=== PATIENT | female | born 1960 | race Caucasian/White ===

== ENCOUNTER 2016-09-13 16:37 | Emergency (ER) | payer OTHER, MEDICAID ==
[~2016-09-13] VITALS: Ht 162.5 cm; Wt 81.6 kg
[2016-09-13] MEDS ORDERED: NAPROSYN500 MG PO (18:30)
== END 2016-09-13 18:35 | disposition home or self-care (01) ==
LOC: ED 16:37
DX: M17.11 Unilateral primary osteoarthritis, right knee (principal); Z88.6 Allergy status to analgesic agent

== ENCOUNTER → 2018-01-03 | Outpatient (CLI) | payer OTHER, MEDICAID ==
[~2018-01-03] MED LIST: AMITRIPTYLINE100 M1 PO; DOK100 M1 PO; FUROSEMIDE40 MG PO; GABAPENTIN600 MG PO; GLIPIZIDE10 M2 PO; GLUCOPHAGE500 M1 PO; GOOD SENSE ACID20 MG PO; LEVOFLOXACIN500 MG PO; LEVOTHYROXINE50 MCG PO; MELOXICAM15 MG PO; METOLAZONE2.5 MG PO; NAPROSYN500 MG PO; TRESIBA FL200 UNIT/1 SQ; ZIAC 5-6.25 MG1 EACH PO; ZOLOFT50 MG PO
== END | disposition home or self-care (01) ==
LOC: MAMMO 13:31
DX: Z12.31 Encounter for screening mammogram for malignant neoplasm of breast (principal)

== ENCOUNTER 2018-01-12 14:04 | Inpatient (IN) | payer OTHER, MEDICAID ==
[~2018-01-12] VITALS: Ht 162.6 cm; Wt 94.5 kg
--- NOTE | ~2018-01-12 | EKG ---
[place], [place] ELECTROCARDIOGRAM REPORT NAME: ANGEL CHATMAN UNIT #: [id number] ROOM: 517 DOCTOR: LEAH DRAFT REPORT BIRTHDATE: [birth year] [facility] Test Date: 2018-01-12 Test Time: 14:33:45 Pat Name: ANGEL CHATMAN Department: Room: [facility] Gender: F Historical Interpreter: Carol Jacob : 1960 Requested By: TERRELL VIGIL PA-C Order Number: [id number] Reading MD: Ignacio Girard MD Measurements Intervals [place] Rate: 89 P: 33 HI: 156 QRS: -58 QRSD: 105 T: 10 QT: 377 QTc: 459 Interpretive Statements Sinus rhythm Left anterior fascicular block Abnormal R-wave progression, late transition Electronically Signed On 01-13-2018 8:05:31 PDT by Ignacio Girard MD CM:EKGRPT:ELECTROCARDIOGRAM REPORT [id number] TERRELL VIGIL PA-C EPIPHANY DRAFT REPORT TERRELL VIGIL PA-C
[2018-01-12 14:04] VITALS: BP 89/56
[~2018-01-12 14:04] MED LIST changes: -AMITRIPTYLINE100 M1 PO; -DOK100 M1 PO; -FUROSEMIDE40 MG PO; -GABAPENTIN600 MG PO; -GLIPIZIDE10 M2 PO; -GLUCOPHAGE500 M1 PO; -GOOD SENSE ACID20 MG PO; -LEVOFLOXACIN500 MG PO; -LEVOTHYROXINE50 MCG PO; -MELOXICAM15 MG PO; -METOLAZONE2.5 MG PO; -TRESIBA FL200 UNIT/1 SQ; -ZIAC 5-6.25 MG1 EACH PO; -ZOLOFT50 MG PO
[2018-01-12 14:11] VITALS: BP 100/56
[2018-01-12 15:02] LABS: BASO # 0.1 10*3/uL (0.0-0.1); BASO % 0.6 % (0.0-1.0); EOS % 0.3 % (1.0-4.0); HEMATOCRIT 48.3 % (37.0-47.0); LYMPH # 2.6 10*3/uL (1.3-4.4); LYMPH % 16.7 % (27.0-41.0); MEAN CORPUSCULAR HGB CONC 35.2 g/dl (33.0-37.0); MEAN PLATELET VOLUME 10.6 fl (9.6-12.3); MONO # 0.7 10*3/uL (0.1-1.0); MONO % 4.4 % (3.0-9.0); NEUT # 11.9 10*3/uL (2.3-7.9); NEUT % 77.5 % (47.0-73.0); PLATELET COUNT AUTOMATED 334 10*3/uL (130-400); RED BLOOD COUNT 5.31 10*6/uL (4.10-5.10); RED CELL DISTRI WIDTH 12.4 % (0-14.5); WHITE BLOOD COUNT 15.3 10*3/uL (4.8-10.8)
[2018-01-12 15:21] LABS: ALBUMIN 4.4 gm/dl (3.1-4.5); ALKALINE PHOSPHATASE 64 U/L (45-117); BUN 25 mg/dl (7-24); CHLORIDE 90 mmol/L (98-107); CREATININE 1.44 mg/dL (0.55-1.02); POTASSIUM 3.1 mmol/L (3.5-5.1); SGOT/AST 66 IU/L (3-35); SGPT/ALT 95 U/L (12-78); SODIUM 131 mmol/L (136-145); TOTAL PROTEIN 8.8 gm/dL (6.4-8.2)
[2018-01-12 15:22] LABS: TROPONIN I < 0.015 ng/ml (<0.045)
[2018-01-12 15:39] LABS: ACT PARTIAL THROMBO TIME 22.6 SECONDS (20.8-31.5)
[2018-01-12 16:09] LABS: BILIRUBIN NEGATIVE (NEGATIVE); BLOOD NEGATIVE (NEGATIVE); CLARITY CLEAR (CLEAR); COLOR YELLOW (YELLOW); GLUCOSE NEGATIVE (NEGATIVE); KETONE NEGATIVE (NEGATIVE); LEUKO ESTERASE NEGATIVE (NEGATIVE); NITRITE NEGATIVE (NEGATIVE); SPECIFIC GRAVITY 1.015 (1.005-1.030); UROBILINOGEN 0.2 E.U./dl (0.2-1.0)
[2018-01-12 16:14] VITALS: BP 102/76
[2018-01-12 16:17] LABS: BACTERIA TRACE; HYALINE CAST 20-25; WBC 0-2 wbc/hpf (0-5)
[2018-01-12] MEDS ORDERED: ZIAC 5-6.25 MG1 EACH PO (16:48)
[2018-01-12] MEDS ORDERED: LEVOTHYROXINE50 MCG PO (16:49)
[2018-01-12] MEDS ORDERED: AMITRIPTYLINE100 M1 PO (16:50)
[2018-01-12] MEDS ORDERED: GABAPENTIN600 MG PO (16:50)
[2018-01-12] MEDS ORDERED: GLUCOPHAGE500 M1 PO (16:53)
[2018-01-12] MEDS ORDERED: METOLAZONE2.5 MG PO (16:54)
[2018-01-12] MEDS ORDERED: FUROSEMIDE40 MG PO (16:54)
[2018-01-12] MEDS ORDERED: MELOXICAM15 MG PO (16:55)
[2018-01-12] MEDS ORDERED: GOOD SENSE ACID20 MG PO (16:56)
[2018-01-12] MEDS ORDERED: DOK100 M1 PO (16:57)
[2018-01-12] MEDS ORDERED: ZOLOFT50 MG PO (16:58)
[2018-01-12] MEDS ORDERED: GLIPIZIDE10 M2 PO (16:58)
[2018-01-12 17:10] VITALS: BP 101/51
[2018-01-12] MEDS ORDERED: NAPROSYN500 MG PO (17:39)
[2018-01-12] MEDS ORDERED: TRESIBA FL200 UNIT/1 SQ (17:41)
[2018-01-12 20:00] VITALS: BP 110/60
[2018-01-13] VITALS: BP 120/61
[2018-01-13 07:07] LABS: ACT PARTIAL THROMBO TIME 22.5 SECONDS (20.8-31.5)
[2018-01-13 07:19] LABS: ALBUMIN 3.3 gm/dl (3.1-4.5); ALKALINE PHOSPHATASE 59 U/L (45-117); BUN 25 mg/dl (7-24); CHLORIDE 95 mmol/L (98-107); CHOLESTEROL 188 mg/dL (<200); CREATININE 1.04 mg/dL (0.55-1.02); HDL CHOLESTEROL 32 mg/dl (40-60); LDL CHOLESTEROL 112 mg/dL (9-159); PHOSPHOROUS 3.9 mg/dL (2.5-4.9); POTASSIUM 2.5 mmol/L (3.5-5.1); SGOT/AST 36 IU/L (3-35); SGPT/ALT 68 U/L (12-78); SODIUM 136 mmol/L (136-145); TOTAL PROTEIN 6.9 gm/dL (6.4-8.2); TRIGLYCERIDES 218 mg/dl (<150); VLDL CHOLESTEROL 44 mg/dL (6-40)
[2018-01-13 07:36] LABS: VITAMIN D, 25-HYDROXY 23.1 ng/mL (30-100)
[2018-01-13 08:00] VITALS: BP 110/58; BP 111/64
[2018-01-13 12:00] VITALS: BP 119/67
[2018-01-13 16:00] VITALS: BP 117/69
[2018-01-13 20:00] VITALS: BP 120/73
[2018-01-14] VITALS: BP 107/51
[2018-01-14 07:09] LABS: ALBUMIN 3.2 gm/dl (3.1-4.5); ALKALINE PHOSPHATASE 46 U/L (45-117); CHLORIDE 102 mmol/L (98-107); CREATININE 0.65 mg/dL (0.55-1.02); POTASSIUM 2.8 mmol/L (3.5-5.1); SGOT/AST 24 IU/L (3-35); SGPT/ALT 55 U/L (12-78); SODIUM 140 mmol/L (136-145); TOTAL PROTEIN 6.6 gm/dL (6.4-8.2)
[2018-01-14 07:12] LABS: BUN 14 mg/dl (7-24)
[2018-01-14 07:27] LABS: BASO # 0.1 10*3/uL (0.0-0.1); BASO % 0.7 % (0.0-1.0); EOS # 0.3 10*3/uL (0.0-0.4); EOS % 3.5 % (1.0-4.0); LYMPH # 3.2 10*3/uL (1.3-4.4); LYMPH % 43.6 % (27.0-41.0); MEAN CORPUSCULAR HGB 31.3 pg (27.0-31.0); MEAN CORPUSCULAR HGB CONC 33.2 g/dl (33.0-37.0); MEAN PLATELET VOLUME 10.9 fl (9.6-12.3); MONO # 0.6 10*3/uL (0.1-1.0); MONO % 7.6 % (3.0-9.0); NEUT # 3.2 10*3/uL (2.3-7.9); NEUT % 44.1 % (47.0-73.0); RED BLOOD COUNT 4.12 10*6/uL (4.10-5.10); RED CELL DISTRI WIDTH 12.4 % (0-14.5); WHITE BLOOD COUNT 7.3 10*3/uL (4.8-10.8)
[2018-01-14 07:31] LABS: HEMATOCRIT 38.9 % (37.0-47.0); HEMOGLOBIN 12.9 g/dl (12.0-16.0); MEAN CELL VOLUME 94.4 fl (81.0-99.0); PLATELET COUNT AUTOMATED 227 10*3/uL (130-400)
[2018-01-14 08:00] VITALS: BP 118/62; BP 122/72
[2018-01-14] MEDS ORDERED: LEVOFLOXACIN500 MG PO (11:33)
[2018-01-14 12:00] VITALS: BP 127/61
== END 2018-01-14 14:55 | disposition home or self-care (01) | DRG 871 ==
LOC: ED 14:04 → 5E 15:58 → EDHOLD 15:58 → 5E 16:26
PROVIDERS: Family Medicine; Physician Assistant; Student in an Organized Health Care Education/Training Program
DX: A41.9 Sepsis, unspecified organism (principal); J18.9 Pneumonia, unspecified organism; N17.0 Acute kidney failure with tubular necrosis; E87.2 Acidosis; E87.1 Hypo-osmolality and hyponatremia; J01.00 Acute maxillary sinusitis, unspecified; J44.9 Chronic obstructive pulmonary disease, unspecified; E03.9 Hypothyroidism, unspecified; E78.00 Pure hypercholesterolemia, unspecified; F32.9 Major depressive disorder, single episode, unspecified; K21.9 Gastro-esophageal reflux disease without esophagitis; I11.0 Hypertensive heart disease with heart failure; I50.9 Heart failure, unspecified; Z88.9 Allergy status to unspecified drugs, medicaments and biological substances; M19.90 Unspecified osteoarthritis, unspecified site; E04.9 Nontoxic goiter, unspecified; Z82.49 Family history of ischemic heart disease and other diseases of the circulatory system; Z81.2 Family history of tobacco abuse and dependence; Z88.5 Allergy status to narcotic agent; R65.20 Severe sepsis without septic shock; E11.65 Type 2 diabetes mellitus with hyperglycemia; R74.0 Nonspecific elevation of levels of transaminase and lactic acid dehydrogenase [LDH]; E87.8 Other disorders of electrolyte and fluid balance, not elsewhere classified; Z79.4 Long term (current) use of insulin; E11.42 Type 2 diabetes mellitus with diabetic polyneuropathy; Z87.891 Personal history of nicotine dependence

== ENCOUNTER 2018-09-04 14:27 | Inpatient (IN) | payer OTHER, MEDICAID ==
[~2018-09-04] VITALS: Ht 162.5 cm; Wt 93.2 kg
--- NOTE | ~2018-09-04 | EKG ---
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: : 1960 Requested By: TERRELL VIGIL PA-C Order Number: [id number] Reading MD: Cecily Ordonez Measurements Intervals [place] Rate: 72 P: 32 ND: 165 QRS: -27 QRSD: 99 T: -3 QT: 412 QTc: 451 Interpretive Statements Sinus rhythm Borderline left axis deviation Abnormal R-wave progression, late transition Borderline T abnormalities, inferior leads Baseline wander in lead(s) V3 Compared to ECG 01/12/2018 14:33:45 T-wave abnormality now present Left anterior fascicular block no longer present Electronically Signed On 09-05-2018 8:45:09 PDT by Cecily Ordonez CM:EKGRPT:ELECTROCARDIOGRAM REPORT [id number] TERRELL VIGIL PA-C EPIPHANY DRAFT REPORT TERRELL VIGIL PA-C
--- NOTE | ~2018-09-04 | EKG ---
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: : 1960 Requested By: TERRELL VIGIL PA-C Order Number: [id number] Reading MD: Cecily Ordonez Measurements Intervals [place] Rate: 78 P: 148 NE: 167 QRS: 213 QRSD: 106 T: 182 QT: 416 QTc: 474 Interpretive Statements Consider arm lead reversal Sinus or ectopic atrial rhythm Consider anterior infarct Consider lateral ischemia Compared to ECG 01/12/2018 14:33:45 Ectopic atrial rhythm now present Posterior QRS axis now present Myocardial infarct finding now present T-wave abnormality now present Possible ischemia now present Electronically Signed On 09-05-2018 8:42:56 PDT by Cecily Ordonez CM:EKGRPT:ELECTROCARDIOGRAM REPORT [id number] TERRELL VIGIL PA-C EPIPHANY DRAFT REPORT TERRELL VIGIL PA-C
--- NOTE | ~2018-09-04 | EKG ---
[place], [place] ELECTROCARDIOGRAM REPORT NAME: ANGEL CHATMAN UNIT #: [id number] ROOM: 525 DOCTOR: LEAH DRAFT REPORT BIRTHDATE: [birth year] [facility] Test Date: 2018-09-04 Test Time: 16:05:23 Pat Name: ANGEL CHATMAN Department: Room: [facility] Gender: F Plan Coordinator: : 1960 Requested By: TERRELL VIGIL PA-C Order Number: [id number] Reading MD: Cecily Ordonez Measurements Intervals [place] Rate: 80 P: 36 [place]: 160 QRS: -33 QRSD: 101 T: 2 QT: 387 QTc: 447 Interpretive Statements Sinus rhythm Left axis deviation Abnormal R-wave progression, late transition Compared to ECG 01/12/2018 14:33:45 Left-axis deviation now present Left anterior fascicular block no longer present Electronically Signed On 09-05-2018 8:39:30 PDT by Cecily Ordonez CM:EKGRPT:ELECTROCARDIOGRAM REPORT [id number] TERRELL VIGIL PA-C EPIPHANY DRAFT REPORT TERRELL VIGIL PA-C
[~2018-09-04 14:27] MED LIST changes: +AMITRIPTYLINE100 M1 PO; +DOK100 M1 PO; +FUROSEMIDE40 MG PO; +GABAPENTIN600 MG PO; +GLIPIZIDE10 M2 PO; +GLUCOPHAGE500 M1 PO; +GOOD SENSE ACID20 MG PO; +LEVOFLOXACIN500 MG PO; +LEVOTHYROXINE50 MCG PO; +MELOXICAM15 MG PO; +METOLAZONE2.5 MG PO; +TRESIBA FL200 UNIT/1 SQ; +ZIAC 5-6.25 MG1 EACH PO; +ZOLOFT50 MG PO
[2018-09-04 14:29] VITALS: BP 121/61
[2018-09-04 16:30] VITALS: BP 118/58
[2018-09-04 16:35] LABS: BASO # 0.1 10*3/uL (0.0-0.1); BASO % 0.4 % (0.0-1.0); EOS # 0.1 10*3/uL (0.0-0.4); EOS % 0.9 % (1.0-4.0); HEMATOCRIT 44.9 % (37.0-47.0); HEMOGLOBIN 15.2 g/dl (12.0-16.0); LYMPH # 3.7 10*3/uL (1.3-4.4); LYMPH % 28.6 % (27.0-41.0); MEAN CELL VOLUME 92.2 fl (81.0-99.0); MEAN CORPUSCULAR HGB 31.2 pg (27.0-31.0); MEAN CORPUSCULAR HGB CONC 33.9 g/dl (33.0-37.0); MEAN PLATELET VOLUME 10.8 fl (9.6-12.3); MONO # 0.9 10*3/uL (0.1-1.0); NEUT # 8.1 10*3/uL (2.3-7.9); NEUT % 62.7 % (47.0-73.0); PLATELET COUNT AUTOMATED 267 10*3/uL (130-400); RED BLOOD COUNT 4.87 10*6/uL (4.10-5.10); RED CELL DISTRI WIDTH 12.5 % (0-14.5); WHITE BLOOD COUNT 12.9 10*3/uL (4.8-10.8)
[2018-09-04 16:50] LABS: ACT PARTIAL THROMBO TIME 25.3 SECONDS (20.0-32.1); INTERNATIONAL NORM RATIO 0.9 (2.0-3.5)
[2018-09-04 16:51] LABS: ALBUMIN 3.9 gm/dl (3.1-4.5); ALKALINE PHOSPHATASE 71 U/L (45-117); BUN 11 mg/dl (7-24); CHLORIDE 97 mmol/L (98-107); CREATININE 0.72 mg/dL (0.55-1.02); POTASSIUM 2.7 mmol/L (3.5-5.1); SGOT/AST 16 IU/L (3-35); SGPT/ALT 30 U/L (12-78); SODIUM 135 mmol/L (136-145); TOTAL PROTEIN 7.7 gm/dL (6.4-8.2)
[2018-09-04 16:52] LABS: TROPONIN I < 0.015 ng/ml (<0.045)
[2018-09-04 19:25] VITALS: BP 112/82
[2018-09-04 20:00] VITALS: BP 144/99
[2018-09-04 20:33] VITALS: BP 104/76
[2018-09-04 21:13] VITALS: BP 94/49
--- NOTE | 2018-09-04 21:13 | NUR ---
A 58, admitted to 5E, under the services of SOO Mendez DO with a diagnosis of ABNORMAL EKG, CHEST PAIN. Chief complaint is TREMORS. Patient arrived via ambulatory from ER. Monitor applied. Initial assessment completed. Vital signs taken and recorded. SOO MENDEZ DO notified of admission to the unit. Orders received. See assessment for past medical history, medications and allergies. Patient and/or family oriented to unit. visitation policy reviewed. Clothing/patient valuable form completed. VIVI GAITAN
[2018-09-04] MEDS ORDERED: COLACE100 MG PO (23:37)
[2018-09-04] MEDS ORDERED: METHOTREXATE2.5 M1 PO (23:38)
[2018-09-04] MEDS ORDERED: K-TAB10 MEQ PO (23:39)
--- NOTE | 2018-09-04 23:40 | NUR ---
DR. TORRES NOTIFIED THAT PATIENT'S MED REQ IS UP TO DATE.
[2018-09-05] VITALS: BP 106/59
[2018-09-05 06:33] LABS: BASO # 0.1 10*3/uL (0.0-0.1); BASO % 0.6 % (0.0-1.0); EOS # 0.2 10*3/uL (0.0-0.4); EOS % 2.7 % (1.0-4.0); HEMATOCRIT 40.9 % (37.0-47.0); HEMOGLOBIN 13.7 g/dl (12.0-16.0); LYMPH # 3.3 10*3/uL (1.3-4.4); MEAN CELL VOLUME 93.2 fl (81.0-99.0); MEAN CORPUSCULAR HGB 31.2 pg (27.0-31.0); MEAN CORPUSCULAR HGB CONC 33.5 g/dl (33.0-37.0); MEAN PLATELET VOLUME 10.8 fl (9.6-12.3); MONO # 0.7 10*3/uL (0.1-1.0); NEUT # 4.4 10*3/uL (2.3-7.9); NEUT % 50.5 % (47.0-73.0); PLATELET COUNT AUTOMATED 224 10*3/uL (130-400); RED BLOOD COUNT 4.39 10*6/uL (4.10-5.10); RED CELL DISTRI WIDTH 12.4 % (0-14.5); WHITE BLOOD COUNT 8.7 10*3/uL (4.8-10.8)
[2018-09-05 07:04] LABS: BUN 12 mg/dl (7-24); CHLORIDE 99 mmol/L (98-107); CHOLESTEROL 196 mg/dL (<200); POTASSIUM 2.6 mmol/L (3.5-5.1); SODIUM 137 mmol/L (136-145); TRIGLYCERIDES 233 mg/dl (<150); VLDL CHOLESTEROL 47 mg/dL (6-40)
[2018-09-05 07:12] LABS: HDL CHOLESTEROL 34 mg/dl (40-60); LDL CHOLESTEROL 115 mg/dL (9-159)
--- NOTE | 2018-09-05 09:00 | NUR ---
Collaborating Supervising Physician in to talk to patient. Patient states lives at home with alone. There are few steps in the home. Physician: deepak patton [facility]: none Patient's level of ADLs: INDEPENDENT Patient has working utilities: all working DME: walker, glucometer Follow-up physician's appointment after d/c: will be made by hospitalist nurse director upon discharge Does patient want to access PORTAL?: no Discharge plan discussed with patient, patient lives at home alone, she uses a walker for ambulation, patient states she will be going home when able. discussed with her [facility]NA and explained their services and patient declined, stated she didn't have any home needs at this time. IHSAN GUILLERMO
[2018-09-05 09:22] LABS: VITAMIN D, 25-HYDROXY 13.8 ng/mL (30-100)
[2018-09-05 12:00] VITALS: BP 80/52; BP 83/52
--- NOTE | 2018-09-05 12:10 | NUR ---
Updated patients med rec and contacted pharmacy. See new orders.
[2018-09-05 12:30] VITALS: BP 80/52
--- NOTE | 2018-09-05 12:58 | NUR ---
Spoke with Dr. Cornejo regarding patients low blood pressure. Patient to receive fluid bolus and recheck pressure in 1 hour. See new orders.
--- NOTE | 2018-09-05 16:03 | NUR ---
Bolus of fluids effective. See vitals. Patient states "I had a headache, but it is gone."
--- NOTE | 2018-09-05 16:19 | NUR ---
Discharge instructions reviewed with patient/family. Patient receptive and verbalizes understanding. Follow-up care arranged. Written instructions given to patient/family. Follow up appointments and medications were reviewed with patient. Patient ambulated from unit with a friend and all personal belongings accounted for. ROSENDO LERNER
== END 2018-09-05 16:19 | disposition home or self-care (01) | DRG 206 ==
LOC: ED 14:27 → EDHOLD 19:58 → 5E 19:58
PROVIDERS: Internal Medicine; Physician Assistant; ADMIT Internal Medicine
DX: M94.0 Chondrocostal junction syndrome [Tietze] (principal); E87.1 Hypo-osmolality and hyponatremia; K21.9 Gastro-esophageal reflux disease without esophagitis; F41.9 Anxiety disorder, unspecified; R94.31 Abnormal electrocardiogram [ECG] [EKG]; E87.6 Hypokalemia; R00.0 Tachycardia, unspecified; E87.8 Other disorders of electrolyte and fluid balance, not elsewhere classified; D72.829 Elevated white blood cell count, unspecified; E03.9 Hypothyroidism, unspecified; J44.9 Chronic obstructive pulmonary disease, unspecified; E11.65 Type 2 diabetes mellitus with hyperglycemia; I50.9 Heart failure, unspecified; R07.89 Other chest pain; M19.90 Unspecified osteoarthritis, unspecified site; I11.0 Hypertensive heart disease with heart failure; M06.9 Rheumatoid arthritis, unspecified; E78.00 Pure hypercholesterolemia, unspecified; Z88.6 Allergy status to analgesic agent; Z88.8 Allergy status to other drugs, medicaments and biological substances; Z79.4 Long term (current) use of insulin; Z79.899 Other long term (current) drug therapy; Z87.891 Personal history of nicotine dependence; Z82.49 Family history of ischemic heart disease and other diseases of the circulatory system; Z81.2 Family history of tobacco abuse and dependence

== ENCOUNTER 2019-01-19 18:08 | Inpatient (IN) | payer OTHER, MEDICAID ==
[~2019-01-19] VITALS: Ht 162.5 cm; Wt 88.6 kg
[~2019-01-19 18:08] MED LIST changes: +COLACE100 MG PO; +K-TAB10 MEQ PO; +METHOTREXATE2.5 M1 PO
[2019-01-19 18:10] VITALS: BP 116/59
[2019-01-19 20:32] VITALS: BP 110/60
[2019-01-19 21:21] LABS: BASO # 0.1 10*3/uL (0.0-0.1); BASO % 0.6 % (0.0-1.0); EOS # 0.1 10*3/uL (0.0-0.4); EOS % 0.6 % (1.0-4.0); HEMATOCRIT 43.3 % (37.0-47.0); HEMOGLOBIN 15.3 g/dl (12.0-16.0); LYMPH # 3.5 10*3/uL (1.3-4.4); LYMPH % 27.3 % (27.0-41.0); MEAN CELL VOLUME 90.8 fl (81.0-99.0); MEAN CORPUSCULAR HGB 32.1 pg (27.0-31.0); MEAN CORPUSCULAR HGB CONC 35.3 g/dl (33.0-37.0); MEAN PLATELET VOLUME 11.3 fl (9.6-12.3); MONO # 0.8 10*3/uL (0.1-1.0); MONO % 6.2 % (3.0-9.0); NEUT # 8.4 10*3/uL (2.3-7.9); NEUT % 64.8 % (47.0-73.0); PLATELET COUNT AUTOMATED 305 10*3/uL (130-400); RED BLOOD COUNT 4.77 10*6/uL (4.10-5.10); RED CELL DISTRI WIDTH 12.5 % (0-14.5)
[2019-01-19 21:36] LABS: ALBUMIN 3.9 gm/dl (3.1-4.5); ALKALINE PHOSPHATASE 76 U/L (45-117); BUN 17 mg/dl (7-24); CHLORIDE 89 mmol/L (98-107); CREATININE 1.11 mg/dL (0.55-1.02); POTASSIUM 2.6 mmol/L (3.5-5.1); SGOT/AST 24 IU/L (3-35); SGPT/ALT 34 U/L (12-78); SODIUM 131 mmol/L (136-145); TOTAL PROTEIN 7.9 gm/dL (6.4-8.2)
[2019-01-20 01:26] LABS: BUN 15 mg/dl (7-24); CHLORIDE 95 mmol/L (98-107); SODIUM 134 mmol/L (136-145)
[2019-01-20 01:29] LABS: POTASSIUM 2.3 mmol/L (3.5-5.1)
[2019-01-20 02:08] VITALS: BP 117/74
--- NOTE | 2019-01-20 02:45 | NUR ---
PATIENT GIVEN KDUR 80MEG PO PER VO DR ALICEA.
[2019-01-20 06:12] LABS: BASO # 0.1 10*3/uL (0.0-0.1); BASO % 0.5 % (0.0-1.0); EOS # 0.1 10*3/uL (0.0-0.4); EOS % 0.8 % (1.0-4.0); HEMATOCRIT 38.2 % (37.0-47.0); HEMOGLOBIN 13.1 g/dl (12.0-16.0); LYMPH # 2.6 10*3/uL (1.3-4.4); LYMPH % 24.7 % (27.0-41.0); MEAN CELL VOLUME 92.7 fl (81.0-99.0); MEAN CORPUSCULAR HGB 31.8 pg (27.0-31.0); MEAN CORPUSCULAR HGB CONC 34.3 g/dl (33.0-37.0); MEAN PLATELET VOLUME 11.8 fl (9.6-12.3); MONO # 0.6 10*3/uL (0.1-1.0); MONO % 5.3 % (3.0-9.0); NEUT # 7.2 10*3/uL (2.3-7.9); NEUT % 68.4 % (47.0-73.0); PLATELET COUNT AUTOMATED 263 10*3/uL (130-400); RED BLOOD COUNT 4.12 10*6/uL (4.10-5.10); RED CELL DISTRI WIDTH 12.5 % (0-14.5); WHITE BLOOD COUNT 10.5 10*3/uL (4.8-10.8)
[2019-01-20 06:17] LABS: ALBUMIN 3.2 gm/dl (3.1-4.5); BUN 13 mg/dl (7-24); CHLORIDE 96 mmol/L (98-107); POTASSIUM 2.6 mmol/L (3.5-5.1); SODIUM 134 mmol/L (136-145)
[2019-01-20 06:22] LABS: ALKALINE PHOSPHATASE 62 U/L (45-117); CHOLESTEROL 180 mg/dL (<200); CREATININE 0.61 mg/dL (0.55-1.02); HDL CHOLESTEROL 32 mg/dl (40-60); LDL CHOLESTEROL 119 mg/dL (9-159); SGOT/AST 13 IU/L (3-35); SGPT/ALT 27 U/L (12-78); TOTAL PROTEIN 6.3 gm/dL (6.4-8.2); TRIGLYCERIDES 146 mg/dl (<150); VLDL CHOLESTEROL 29 mg/dL (6-40)
--- NOTE | 2019-01-20 07:02 | NUR ---
REPORT RECIEVED FROM FAHAD PAIZ
--- NOTE | 2019-01-20 07:43 | NUR ---
RESIDENT IN WITH PATIENT
--- NOTE | 2019-01-20 08:20 | NUR ---
BEDSIDE BGL 305 LASK K+ 0105 HRS 2.3 AWAITING UPDATED K+ LEVEL
--- NOTE | 2019-01-20 09:19 | NUR ---
UNABLE TO PULL LISPRO FROM [facility]
--- NOTE | 2019-01-20 09:23 | NUR ---
A 59[facility] under the services of LENA Grover DO with a diagnosis of HYPERGLYCEMIA, DM W/ HYPEROSMOLITY, W/O COMA. Chief complaint is RIGHT KNEE PAIN. Patient arrived via stretcher from ER. Monitor applied. Initial assessment completed. Vital signs taken and recorded. LENA GROVER DO notified of admission to the unit. Orders received. See assessment for past medical history, medications and allergies. Patient and/or family oriented to unit. [facility] visitation policy reviewed. Clothing/patient valuable form completed. WILIAN SPENCER
--- NOTE | 2019-01-20 09:27 | NUR ---
OUT OF LISPRO PHARMACY WILL BRING SOME DOWN
--- NOTE | 2019-01-20 09:37 | NUR ---
MED REC UP TO DATE PER PATIENT
[2019-01-20 09:48] VITALS: BP 103/54
--- NOTE | 2019-01-20 12:30 | NUR ---
PT STATES SHE IS MISSING A SHIRT AND BRA FROM LAST NIGHT STATES SHE HAD THEM ON SHELF I LOOKED OVER ROOM AND IN DIRTY CLOTHES SIVAKUMAR NO CLOTHES FOUND
--- NOTE | 2019-01-20 12:31 | NUR ---
missing clothes found
[2019-01-20 12:55] VITALS: BP 110/50
[2019-01-20] MEDS ORDERED: OZEMPIC0.25 MG/01 SC (13:09)
--- NOTE | 2019-01-20 13:48 | NUR ---
PT GAVE HERSELF HER INSULIN TO COVER GLUCOSE CHECK
[2019-01-20 14:56] LABS: BUN 11 mg/dl (7-24); CHLORIDE 99 mmol/L (98-107); CREATININE 0.72 mg/dL (0.55-1.02); POTASSIUM 3.1 mmol/L (3.5-5.1); SODIUM 135 mmol/L (136-145)
--- NOTE | 2019-01-20 15:23 | NUR ---
[place] in to talk to patient. Patient states lives at HOME with BOYFRIEND. There are OUTSIDE steps in the home. Physician: Russell CABRERA [facility] services: NONE Patient's level of ADLs: INDEPENDENT Patient has working utilities: YES DME: HAS A WALKER BUT DOES NOT USE IT Follow-up physician's appointment after d/c: WILL BE MADE BY HOSPITALIST NURSE DIRECTOR ON DISCHARGE Does patient want to access PORTAL?: NO Discharge plan PT LIVES AT HOME WITH HER BOYFRIEND AND IS INDEPENDENT IN HER CARE. STATES SHE WILL RETURN HOME WITH BOYFRIEND WHEN MEDICALLY STABLE. STATES SHE WILL HAVE A RIDE HOME. WILL CONTINUE TO FOLLOW.. TRUDY CALLOWAY
--- NOTE | 2019-01-20 15:29 | NUR ---
Nursing screen received and chart review completed.Patient admitted with weakness and blood glucose 533 as patient had not taken insulin/diabetic medications in ce 12/18/18. At this time no OT indicated as patient needs medical attention and treatment. If patient should have a decline in ADLs then refer to OT. Thank you. Loyda Arriola OTR/adela
[2019-01-20 16:00] VITALS: BP 98/46
[2019-01-20 20:00] VITALS: BP 87/44
--- NOTE | 2019-01-20 21:08 | NUR ---
Neurological: AAOX3: PLEASANT, COOPERATIVE, SPEECH CLEAR Respiratory: NONLABORED, ROOM AIR Breath sounds: CLEAR/DIMINISHED T/O Cough: NONE NOTED Cardiovascular: HYPOTENSIVE BP 88/24, DENIES CP/PRESSURE, TRACE BLE EDEMA, PPP Gastrointestinal: NORMOACTIVE X4 QUADS, DENIES N/V/D/C, SOFT/NONTENDER/NONDISTENDED Genito/Urinary: DENIES DYSURIA Musculoskeketal: AMBULATORY WITH WALKER, SKIN INTACT PATIENT RESTING IN BED WITH NO C/O OR S/S OF DISTRESS NOTED AT THIS TIME BED IS LOW, LOCKED, ALARMED, AND CALL LIGHT IS WITHIN REACH DR. ALICEA CONTACTED IN REGARDS TO LOW BP, SEE NEW ORDERS BEDSIDE GLUCOSE 246. WILL CONTINUE TO MONITOR. VISHAL GRAVES A
[2019-01-20 22:00] VITALS: BP 90/40
[2019-01-21] VITALS: BP 92/44
[2019-01-21 06:56] LABS: BASO # 0.1 10*3/uL (0.0-0.1); BASO % 0.8 % (0.0-1.0); EOS # 0.2 10*3/uL (0.0-0.4); EOS % 3.5 % (1.0-4.0); HEMATOCRIT 39.6 % (37.0-47.0); HEMOGLOBIN 13.5 g/dl (12.0-16.0); LYMPH # 2.8 10*3/uL (1.3-4.4); LYMPH % 42.7 % (27.0-41.0); MEAN CELL VOLUME 94.3 fl (81.0-99.0); MEAN CORPUSCULAR HGB 32.1 pg (27.0-31.0); MEAN CORPUSCULAR HGB CONC 34.1 g/dl (33.0-37.0); MEAN PLATELET VOLUME 11.5 fl (9.6-12.3); MONO # 0.5 10*3/uL (0.1-1.0); MONO % 7.1 % (3.0-9.0); NEUT % 45.4 % (47.0-73.0); PLATELET COUNT AUTOMATED 237 10*3/uL (130-400); RED CELL DISTRI WIDTH 12.7 % (0-14.5); WHITE BLOOD COUNT 6.7 10*3/uL (4.8-10.8)
[2019-01-21 07:27] LABS: BUN 9 mg/dl (7-24); CHLORIDE 103 mmol/L (98-107); CREATININE 0.56 mg/dL (0.55-1.02); POTASSIUM 2.9 mmol/L (3.5-5.1); SODIUM 139 mmol/L (136-145)
[2019-01-21 08:00] VITALS: BP 100/68
--- NOTE | 2019-01-21 09:03 | NUR ---
PHYSICAL THERAPY Nursing screen and PT referral received. Thank you Hortencia Vazquez, PT, DPT
--- NOTE | 2019-01-21 09:11 | NUR ---
PT COMPLAINED OF PAIN 8/ R KNEE SORE SAID BC OF ARTHRITIS GAVE NORCO
--- NOTE | 2019-01-21 09:15 | NUR ---
BP LOW. DR OLMSTEAD NOTIFIED AND STATED TO HOLD BP MEDS.
[2019-01-21 09:25] VITALS: BP 90/58
--- NOTE | 2019-01-21 09:44 | NUR ---
ORDERED ONCE DOSE OF TORADOL 15MG/1ML GAVE VIA IV FOR R KNEE PAIN PT STATES BC OF ARTHRITIS PAIN 09/24
--- NOTE | 2019-01-21 10:00 | NUR ---
CHART CHECK COMPLETED AND REVIEWED
--- NOTE | 2019-01-21 10:11 | NUR ---
GAVE JESSICA @ 0911 01/21/19 PT RESTING IN BED COMFORTABLY, SLEEPING, IN NO DISTRESS, WILL CONTINUE TO MONITOR
--- NOTE | 2019-01-21 10:44 | NUR ---
F/U WITH TORADOL PT SLEEPING, RESTING IN BED COMFORTABLY, IN NO DISTRESS WILL CONTINUE TO MONITOR
--- NOTE | 2019-01-21 10:49 | NUR ---
Occupational Therapy evaluation offered this date with explanation of OT. Patient declines OT evaluation stating that she is independent in all ADLs and mobility. Discharge OT referral. Loyda Arriola OTR/adela
[2019-01-21 12:00] VITALS: BP 114/70
[2019-01-21 12:32] LABS: BUN 10 mg/dl (7-24); CHLORIDE 101 mmol/L (98-107); CREATININE 0.73 mg/dL (0.55-1.02); POTASSIUM 3.4 mmol/L (3.5-5.1); SODIUM 137 mmol/L (136-145)
[2019-01-21] MEDS ORDERED: TRESIBA FL200 UNIT/1 SQ (13:03)
--- NOTE | 2019-01-21 13:48 | NUR ---
PT DENIES SHE WILL HAVE NEEDS ON DISCHARGE. WILL CONTINUE TO FOLLOW.
--- NOTE | 2019-01-21 14:49 | NUR ---
DISCHARGE INSTRUCTIONS WENT OVER WITH PT. PT DENIED QUESTIONS, PT STABLE @ DEISCHARGE. LEFT VIA WHEELCHAIR
== END 2019-01-21 14:49 | disposition home or self-care (01) | DRG 637 ==
LOC: ED 18:08 → EDHOLD 22:10 → 4E 22:10
PROVIDERS: Emergency Medicine; Internal Medicine; Student in an Organized Health Care Education/Training Program; ADMIT Family Medicine
DX: E11.00 Type 2 diabetes mellitus with hyperosmolarity without nonketotic hyperglycemic-hyperosmolar coma (NKHHC) (principal); R65.11 Systemic inflammatory response syndrome (SIRS) of non-infectious origin with acute organ dysfunction; I50.32 Chronic diastolic (congestive) heart failure; E87.1 Hypo-osmolality and hyponatremia; E87.2 Acidosis; E87.6 Hypokalemia; M25.461 Effusion, right knee; E87.8 Other disorders of electrolyte and fluid balance, not elsewhere classified; E66.9 Obesity, unspecified; M17.2 Bilateral post-traumatic osteoarthritis of knee; E04.9 Nontoxic goiter, unspecified; J41.0 Simple chronic bronchitis; K21.9 Gastro-esophageal reflux disease without esophagitis; E03.9 Hypothyroidism, unspecified; Z87.891 Personal history of nicotine dependence; Z82.49 Family history of ischemic heart disease and other diseases of the circulatory system; Z88.8 Allergy status to other drugs, medicaments and biological substances; Z79.899 Other long term (current) drug therapy; Z79.84 Long term (current) use of oral hypoglycemic drugs; Z68.33 Body mass index [BMI] 33.0-33.9, adult

== ENCOUNTER → 2019-03-05 | Outpatient (CLI) | payer OTHER, MEDICAID ==
[~2019-03-05] MED LIST changes: +OZEMPIC0.25 MG/01 SC
[2019-03-05 15:32] LABS: BASO # 0.1 10*3/uL (0.0-0.1); BASO % 0.6 % (0.0-1.0); EOS # 0.1 10*3/uL (0.0-0.4); EOS % 0.9 % (1.0-4.0); HEMATOCRIT 44.3 % (37.0-47.0); HEMOGLOBIN 14.7 g/dl (12.0-16.0); LYMPH # 2.9 10*3/uL (1.3-4.4); LYMPH % 30.1 % (27.0-41.0); MEAN CELL VOLUME 93.7 fl (81.0-99.0); MEAN CORPUSCULAR HGB 31.1 pg (27.0-31.0); MEAN CORPUSCULAR HGB CONC 33.2 g/dl (33.0-37.0); MEAN PLATELET VOLUME 10.2 fl (9.6-12.3); MONO # 0.5 10*3/uL (0.1-1.0); MONO % 5.5 % (3.0-9.0); NEUT # 6.1 10*3/uL (2.3-7.9); NEUT % 62.6 % (47.0-73.0); PLATELET COUNT AUTOMATED 333 10*3/uL (130-400); RED BLOOD COUNT 4.73 10*6/uL (4.10-5.10); RED CELL DISTRI WIDTH 12.9 % (0-14.5); WHITE BLOOD COUNT 9.8 10*3/uL (4.8-10.8)
[2019-03-06 08:08] LABS: HEPATITIS C VIRUS ANTIBODY <0.1 s/co (0.0-0.9)
[2019-03-06 10:07] LABS: HEPATITIS B SURFACE AG Positive (Negative)
[2019-03-06 11:09] LABS: RHEUMATOID ARTHRITIS FACTOR 62.2 IU/mL (0.0-13.9)
[2019-03-06 12:33] LABS: ANTI-RNP ANTIBODIES 0.2 AI (0.0-0.9)
[2019-03-06 22:06] LABS: CCP ANTIBODIES IGG/IGA 13 units (0-19)
[2019-03-07 00:10] LABS: LUPUS DRVVT 40.4 sec (0.0-47.0); LUPUS REFLEX INTERPRETATION Comment: (.); PTT-LA 34.1 sec (0.0-51.9)
[2019-03-10 16:06] LABS: HLA-B27 ANTIGEN Negative (.)
== END | disposition home or self-care (01) ==
LOC: LAB 15:10
PROVIDERS: Orthopaedic Surgery
DX: M25.50 Pain in unspecified joint (principal); R53.83 Other fatigue

== ENCOUNTER 2019-04-16 15:46 | Emergency (ER) | payer OTHER, MEDICAID ==
[~2019-04-16] VITALS: Ht 162.5 cm; Wt 86.6 kg
[2019-04-16] MEDS ORDERED: NORCO 5-325 TA1 EACH PO (18:10)
== END 2019-04-16 18:21 | disposition home or self-care (01) ==
LOC: ED 15:46
DX: S92.355A Nondisplaced fracture of fifth metatarsal bone, left foot, initial encounter for closed fracture (principal); I50.9 Heart failure, unspecified; I11.0 Hypertensive heart disease with heart failure; E78.00 Pure hypercholesterolemia, unspecified; E11.43 Type 2 diabetes mellitus with diabetic autonomic (poly)neuropathy; J44.9 Chronic obstructive pulmonary disease, unspecified; E03.9 Hypothyroidism, unspecified; Z88.6 Allergy status to analgesic agent; Z88.8 Allergy status to other drugs, medicaments and biological substances; Z79.899 Other long term (current) drug therapy; Z87.891 Personal history of nicotine dependence; W22.8XXA Striking against or struck by other objects, initial encounter; Y93.89 Activity, other specified; Y92.89 Other specified places as the place of occurrence of the external cause; Y99.8 Other external cause status

== ENCOUNTER → 2019-05-05 | Outpatient (CLI) | payer OTHER, MEDICAID ==
[~2019-05-05] MED LIST changes: +NORCO 5-325 TA1 EACH PO
[2019-05-05 15:21] LABS: ALBUMIN 4.2 gm/dl (3.1-4.5); BUN 19 mg/dl (7-24); CHLORIDE 97 mmol/L (98-107); POTASSIUM 3.1 mmol/L (3.5-5.1); SGOT/AST 96 IU/L (3-35); SGPT/ALT 174 U/L (12-78); SODIUM 138 mmol/L (136-145)
[2019-05-05 15:22] LABS: ALKALINE PHOSPHATASE 60 U/L (45-117); CREATININE 0.88 mg/dL (0.55-1.02); TOTAL PROTEIN 8.1 gm/dL (6.4-8.2)
== END | disposition home or self-care (01) ==
LOC: LAB 13:18
PROVIDERS: Internal Medicine Endocrinology, Diabetes & Metabolism
DX: E11.65 Type 2 diabetes mellitus with hyperglycemia (principal); E87.6 Hypokalemia; E55.9 Vitamin D deficiency, unspecified

== ENCOUNTER 2019-05-21 17:34 | Emergency (ER) | payer OTHER, MEDICAID ==
[~2019-05-21] VITALS: Ht 162.5 cm; Wt 86.2 kg
[2019-05-21] MEDS ORDERED: ANTIBIOTIC28.4 GM T (19:57)
[2019-05-21] MEDS ORDERED: CEPHALEXIN500 M1 PO (19:57)
== END 2019-05-21 20:41 | disposition home or self-care (01) ==
LOC: ED 17:34
DX: S92.352G Displaced fracture of fifth metatarsal bone, left foot, subsequent encounter for fracture with delayed healing (principal); L08.9 Local infection of the skin and subcutaneous tissue, unspecified; E11.9 Type 2 diabetes mellitus without complications; J44.9 Chronic obstructive pulmonary disease, unspecified; I11.0 Hypertensive heart disease with heart failure; E78.5 Hyperlipidemia, unspecified; E03.9 Hypothyroidism, unspecified; Z88.6 Allergy status to analgesic agent; Z79.899 Other long term (current) drug therapy; Z87.891 Personal history of nicotine dependence; X58.XXXD Exposure to other specified factors, subsequent encounter

== ENCOUNTER 2019-08-20 19:19 | Emergency (ER) | payer OTHER, MEDICAID ==
[~2019-08-20] VITALS: Ht 162.5 cm; Wt 87.1 kg
[~2019-08-20 19:19] MED LIST changes: +ANTIBIOTIC28.4 GM T; +CEPHALEXIN500 M1 PO
== END 2019-08-20 21:49 | disposition home or self-care (01) ==
LOC: ED 19:19
DX: S52.691A Other fracture of lower end of right ulna, initial encounter for closed fracture (principal); S09.90XA Unspecified injury of head, initial encounter; E66.9 Obesity, unspecified; J44.9 Chronic obstructive pulmonary disease, unspecified; K21.9 Gastro-esophageal reflux disease without esophagitis; E03.9 Hypothyroidism, unspecified; I50.9 Heart failure, unspecified; I11.0 Hypertensive heart disease with heart failure; E11.42 Type 2 diabetes mellitus with diabetic polyneuropathy; Z88.8 Allergy status to other drugs, medicaments and biological substances; Z88.6 Allergy status to analgesic agent; Z79.899 Other long term (current) drug therapy; Z68.39 Body mass index [BMI] 39.0-39.9, adult; W18.39XA Other fall on same level, initial encounter; Y93.89 Activity, other specified; Y92.89 Other specified places as the place of occurrence of the external cause; Y99.8 Other external cause status

== ENCOUNTER 2019-10-10 18:16 | Emergency (ER) | payer OTHER, MEDICAID ==
[2019-10-10] MEDS ORDERED: NORCO 5-325 TA1 EACH PO (21:49)
== END 2019-10-10 22:00 | disposition home or self-care (01) ==
LOC: ED 18:16
DX: S82.831A Other fracture of upper and lower end of right fibula, initial encounter for closed fracture (principal); I11.0 Hypertensive heart disease with heart failure; I50.9 Heart failure, unspecified; E78.00 Pure hypercholesterolemia, unspecified; F41.9 Anxiety disorder, unspecified; F32.9 Major depressive disorder, single episode, unspecified; J44.9 Chronic obstructive pulmonary disease, unspecified; E03.9 Hypothyroidism, unspecified; Z88.5 Allergy status to narcotic agent; Z79.899 Other long term (current) drug therapy; W19.XXXA Unspecified fall, initial encounter; Y93.89 Activity, other specified; Y92.89 Other specified places as the place of occurrence of the external cause; Y99.8 Other external cause status

== ENCOUNTER 2019-11-03 13:21 | Emergency (ER) | payer OTHER, MEDICAID ==
[~2019-11-03] VITALS: Ht 162.5 cm; Wt 83.9 kg
[2019-11-03] MEDS ORDERED: NORCO 5-325 TA1 EACH PO (15:18)
== END 2019-11-03 16:07 | disposition home or self-care (01) ==
LOC: ED 13:21
DX: S62.101A Fracture of unspecified carpal bone, right wrist, initial encounter for closed fracture (principal); S90.414A Abrasion, right lesser toe(s), initial encounter; I11.0 Hypertensive heart disease with heart failure; I50.9 Heart failure, unspecified; E78.00 Pure hypercholesterolemia, unspecified; F41.9 Anxiety disorder, unspecified; E03.9 Hypothyroidism, unspecified; Z88.8 Allergy status to other drugs, medicaments and biological substances; Z88.5 Allergy status to narcotic agent; Z79.899 Other long term (current) drug therapy; Z87.891 Personal history of nicotine dependence; W19.XXXA Unspecified fall, initial encounter; Y93.89 Activity, other specified; Y92.89 Other specified places as the place of occurrence of the external cause; Y99.8 Other external cause status

== ENCOUNTER 2021-05-08 18:09 | Emergency (ER) | payer OTHER ==
[~2021-05-08] VITALS: Ht 162.5 cm; Wt 83.9 kg
== END 2021-05-08 20:12 | disposition home or self-care (01) ==
LOC: ED 18:09
DX: S00.03XA Contusion of scalp, initial encounter (principal); Z88.6 Allergy status to analgesic agent; Z88.8 Allergy status to other drugs, medicaments and biological substances; Z79.899 Other long term (current) drug therapy; Z98.890 Other specified postprocedural states; Z87.891 Personal history of nicotine dependence; Z98.51 Tubal ligation status; W18.39XA Other fall on same level, initial encounter; Y93.89 Activity, other specified; Y92.89 Other specified places as the place of occurrence of the external cause; Y99.8 Other external cause status

== ENCOUNTER → 2021-08-11 | Outpatient (CLI) | payer OTHER | END | disposition home or self-care (01) | LOC: CARD 01:26 | PROVIDERS: ATTEND Internal Medicine Cardiovascular Disease | DX: R07.89 Other chest pain (principal); Z01.818 Encounter for other preprocedural examination; R53.81 Other malaise; R06.02 Shortness of breath ==

== ENCOUNTER 2021-10-10 16:15 | Emergency (ER) | payer OTHER ==
[~2021-10-10] VITALS: Ht 162.5 cm; Wt 83.9 kg
[2021-10-10] MEDS ORDERED: Percocet 325 MG1 TAB PO (20:04)
== END 2021-10-10 20:13 | disposition home or self-care (01) ==
LOC: ED 16:15
DX: M54.50 Low back pain, unspecified (principal); J44.9 Chronic obstructive pulmonary disease, unspecified; K21.9 Gastro-esophageal reflux disease without esophagitis; I50.9 Heart failure, unspecified; E11.9 Type 2 diabetes mellitus without complications; E03.9 Hypothyroidism, unspecified; Z88.8 Allergy status to other drugs, medicaments and biological substances; Z79.899 Other long term (current) drug therapy; Z87.891 Personal history of nicotine dependence; W18.39XA Other fall on same level, initial encounter; Y93.89 Activity, other specified; Y92.89 Other specified places as the place of occurrence of the external cause; Y99.8 Other external cause status

== ENCOUNTER 2022-09-04 17:13 | Emergency (ER) | payer OTHER ==
[~2022-09-04] VITALS: Ht 162.5 cm; Wt 86.6 kg
[~2022-09-04 17:13] MED LIST changes: +Percocet 325 MG1 TAB PO
[2022-09-04 18:08] LABS: BASO % 0.5 % (0.0-1.0); EOS # 0.1 10*3/uL (0.0-0.4); EOS % 1.4 % (1.0-4.0); HEMATOCRIT 48.6 % (37.0-47.0); LYMPH # 2.4 10*3/uL (1.3-4.4); LYMPH % 27.9 % (27.0-41.0); MEAN CELL VOLUME 92.2 fl (81.0-99.0); MEAN CORPUSCULAR HGB 29.2 pg (27.0-31.0); MEAN CORPUSCULAR HGB CONC 31.7 g/dl (33.0-37.0); MEAN PLATELET VOLUME 10.6 fl (9.6-12.3); MONO # 0.7 10*3/uL (0.1-1.0); MONO % 8.2 % (3.0-9.0); NEUT # 5.2 10*3/uL (2.3-7.9); NEUT % 61.8 % (47.0-73.0); PLATELET COUNT AUTOMATED 261 10*3/uL (130-400); RED BLOOD COUNT 5.27 10*6/uL (4.10-5.10); RED CELL DISTRI WIDTH 13.3 % (0-14.5); WHITE BLOOD COUNT 8.5 10*3/uL (4.8-10.8)
[2022-09-04 18:32] LABS: ALKALINE PHOSPHATASE 57 U/L (46-116); BUN 10 mg/dl (9-23); CHLORIDE 101 mmol/L (98-107); POTASSIUM 3.7 mmol/L (3.4-5.1); SGPT/ALT 50 U/L (10-49); TOTAL PROTEIN 7.3 gm/dL (6.0-8.0)
== END 2022-09-04 20:24 | disposition home or self-care (01) ==
LOC: ED 17:13
PROVIDERS: Nurse Practitioner
DX: E87.20 Acidosis, unspecified (principal); I50.9 Heart failure, unspecified; I11.0 Hypertensive heart disease with heart failure; E78.00 Pure hypercholesterolemia, unspecified; E11.40 Type 2 diabetes mellitus with diabetic neuropathy, unspecified; F41.9 Anxiety disorder, unspecified; F32.A Depression, unspecified; J44.9 Chronic obstructive pulmonary disease, unspecified; E03.9 Hypothyroidism, unspecified; Z88.5 Allergy status to narcotic agent; Z88.8 Allergy status to other drugs, medicaments and biological substances; Z98.890 Other specified postprocedural states; Z98.51 Tubal ligation status; Z87.891 Personal history of nicotine dependence

== ENCOUNTER 2023-01-21 13:07 | Emergency (ER) | payer OTHER ==
[~2023-01-21] VITALS: Ht 162.5 cm; Wt 83.9 kg
[2023-01-21] MEDS ORDERED: TRAMADOL HCL50 MG PO ×2 (14:01→14:02)
== END 2023-01-21 14:31 | disposition home or self-care (01) ==
LOC: ED 13:07
DX: M54.50 Low back pain, unspecified (principal); I11.0 Hypertensive heart disease with heart failure; I50.9 Heart failure, unspecified; E11.9 Type 2 diabetes mellitus without complications; E78.00 Pure hypercholesterolemia, unspecified; F41.9 Anxiety disorder, unspecified; F32.A Depression, unspecified; E11.40 Type 2 diabetes mellitus with diabetic neuropathy, unspecified; J44.9 Chronic obstructive pulmonary disease, unspecified; E03.9 Hypothyroidism, unspecified; Z88.5 Allergy status to narcotic agent; Z88.8 Allergy status to other drugs, medicaments and biological substances; Z98.890 Other specified postprocedural states; Z98.51 Tubal ligation status; Z87.891 Personal history of nicotine dependence

== ENCOUNTER 2024-11-25 19:16 | Emergency (ER) | payer OTHER ==
[~2024-11-25] VITALS: Ht 162.5 cm; Wt 96.2 kg
[~2024-11-25 19:16] MED LIST changes: +ATENOLOL25 MG PO; +FAMOTIDINE20 M1 PO; +JARDIANCE25 MG PO; +KLOR-CON 1010 ME1 PO; +LASIX40 MG PO; +LEVOTHYROXINE75 MCG PO; +METFORMIN HYDR500 MG PO; +MULTIVITAMIN1 EACH PO; +NEURONTIN600 MG PO; +OXYCODONE-ACET1 EAC3 PO; +TRAMADOL HCL50 MG PO; +TRULICITY1.5 MG/0.5 SC
[2024-11-25 19:52] LABS: BASO # 0.0 10*3/uL (0.0-0.1); BASO % 0.1 % (0.0-1.0); EOS # 0.0 10*3/uL (0.0-0.4); EOS % 0.3 % (1.0-4.0); MEAN CELL VOLUME 90.3 fl (81.0-99.0); MEAN CORPUSCULAR HGB 29.6 pg (27.0-31.0); MEAN PLATELET VOLUME 10.6 fl (9.6-12.3); MONO # 0.6 10*3/uL (0.1-1.0); MONO % 5.8 % (3.0-9.0); NEUT # 9.8 10*3/uL (2.3-7.9); NEUT % 89.4 % (47.0-73.0); NUCLEATED RED BLOOD CELL 0.0 % (0.0-0.0); NUCLEATED RED BLOOD CELL 0.0 10*3/uL (0.0-0.0); PLATELET COUNT AUTOMATED 208 10*3/uL (130-400); RED CELL DISTRI WIDTH 13.0 % (0-14.5)
[2024-11-25 20:17] LABS: BUN 17 mg/dl (9-23); SGPT/ALT 447 U/L (5-49)
[2024-11-25] MEDS ORDERED: HUMALOG KW200 UNIT/1 SQ (23:09)
[2024-11-25] MEDS ORDERED: ATORVASTATIN CA20 M1 PO (23:10)
[2024-11-26] MEDS ORDERED: SODIUM CHLORIDE 0.9% 1,000 ML IV ONE ×2 (08:05→10:15)
[2024-11-26] MEDS ORDERED: Ondansetron Hydrochloride 4 MG/2 ML VIAL IV ONE (12:25)
== END 2024-11-26 14:35 | disposition short-term general hospital (02) ==
LOC: ED 19:16
PROVIDERS: Internal Medicine
DX: K81.9 Cholecystitis, unspecified (principal); E11.9 Type 2 diabetes mellitus without complications; E78.5 Hyperlipidemia, unspecified; Z88.8 Allergy status to other drugs, medicaments and biological substances; Z88.5 Allergy status to narcotic agent; Z79.899 Other long term (current) drug therapy; Z79.4 Long term (current) use of insulin; Z98.890 Other specified postprocedural states; Z87.891 Personal history of nicotine dependence